=== PATIENT | female | born 1935 | race Asian ===

== ENCOUNTER 2021-06-02 18:30 | Inpatient (IN) | payer OTHER ==
[2021-06-02] MEDS ORDERED: METHYLPREDNISOLONE 125 MG INJ IV ONE (21:13)
[2021-06-02] MEDS ORDERED: ONDANSETRON 4 MG/2 ML VIAL IV PRN (21:13)
[2021-06-02] MEDS ORDERED: MAGNESIUM SULFATE 1 gm IVPB 1 GM/100 ML BAG IV ONE (21:16)
--- NOTE | 2021-06-02 21:24 | P.HP ---
Certification for Inpatient Patient admitted to: Inpatient With expected LOS: >2 Midnights Patient will require the following post-hospital care: None Practitioner: I am a practitioner with admitting privileges, knowledge of patient current condition, hospital course, and medical plan of care. Services: Services provided to patient in accordance with Admission requirements found in Title 42 Section 412.3 of the Code of Federal Regulations Patient History Date of Service: 06/02/21 Reason for admission: Asthma exacerbation History of Present Illness: 86-year-old female was transferred from stand-alone emergency department from [facility] for asthma exacerbation. Patient was treated in stand- alone emergency department with Decadron, nebulizer treatments but had refractory wheezing and dyspnea at rest, family lives close by and wished for patient to be transported here for further evaluation and management. Patient work-up at stand-alone ER unremarkable, chest x-ray with questionable pulmonary hypertension but no other acute findings labs overall unremarkable. Patient arrived to our facility still with expiratory wheezing, dyspnea, tachypnea and mild tachycardia. Patient seen and examined, have ordered additional medications including Solu-Medrol, magnesium, Xopenex breathing treatments given tachycardia. Will obtain ABG and admit for further evaluation. Allergies No Known Allergies Allergy (Verified 08/14/17 15:21) Home Medications: Albuterol Sulfate [Proair Hfa] 90 mcg IH QID 08/14/17 Losartan Potassium 100 mg PO DAILY 08/14/17 Oseltamivir Phosphate [Tamiflu] 75 mg PO BID 08/14/17 Arformoterol Tartrate [Brovana] 15 mcg IH BID #60 ml 08/16/17 Budesonide [Pulmicort] 1 mg IH BID #60 ampul.neb 08/16/17 Albuterol Neb [Proventil 0.083% Neb Soln] 2.5 mg IH QID PRN #300 amp 08/18/17 hydroCHLOROthiazide [Hydrodiuril*] 25 mg PO DAILY #30 tab 08/18/17 predniSONE [Deltasone*] 10 mg PO BID #20 tab 08/18/17 - Past Medical/Surgical History Diabetic: No -: ASTHMA -: HTN -: TUBAL LIGATION Psychosocial/ Personal History: Patient lives at home with her family - Family History Mother -: Diabetes - Social History Smoking Status: Never smoker Alcohol use: No CD- Drugs: No Caffeine use: No Place of Residence: Home Review of Systems 10-point ROS is otherwise unremarkable Respiratory: Cough, Dry, Shortness of Breath, SOB with Excertion, Wheezing, As per HPI Physical Examination - Physical Exam General: Alert, In no apparent distress, Oriented x3 HEENT: Atraumatic, PERRLA, Mucous membr. moist/pink, EOMI, Sclerae nonicteric Neck: Supple, 2+ carotid pulse no bruit, No LAD, Without JVD or thyroid abnormality Respiratory: Expiratory wheezes, Other (Mild to moderate dyspnea/tachypnea) Cardiovascular: Regular rate/rhythm (Sinus tachycardia), Normal S1 S2 Capillary refill: <2 Seconds Gastrointestinal: Normal bowel sounds, No tenderness Musculoskeletal: No contractures, No erythema, No tenderness Integumentary: No rashes Neurological: Normal speech, Normal strength at 5/5 x4 extr, Normal tone, Normal affect Assessment and Plan - Plan Assessment: Acute hypoxic respiratory failure secondary to asthma exacerbation Hypertension Plan: Acute hypoxic respiratory failure secondary to asthma exacerbation: Patient with mild to moderate dyspnea/tachypnea, expiratory wheezing at this time. Will treat with stat dose of Solu-Medrol, magnesium, Xopenex breathing treatment given mild tachycardia. Work-up at stand-alone ER unremarkable, Covid negative chest x-ray with pulmonary hypertension labs unremarkable. We will continue with scheduled nebs, ICS, scheduled steroids, pulmonology consult. ABG ordered and pending, patient may require BiPAP. Hypertension: Question if patient is taking medication or not, will need to verify home medications from pharmacy. Restart as appropriate, provide as needed blood pressure medication. DVT PPX: Lovenox Code status: Full Discharge Plan: Home Plan to discharge in: 48 Hours - Advance Directives Does patient have a Living Will: No Does patient have a Durable POA for Healthcare: No - Code Status/Comfort Care Code Status Assessed: Yes (Full code) Critical Care: No Time Spent Managing Pts Care (In Minutes): 55
[2021-06-02] MEDS: LEVALBUTEROL 1.25 MG/3 ML NEB NEB SCH (22:00)
[2021-06-02 22:06] LABS: Arterial Blood Carboxyhemoglob 0.8 % (0-1.5); Blood Gas Oxyhemoglobin 96.4 % (94-97)
[2021-06-02 22:27] VITALS: BMI 20.3
[2021-06-03] MEDS: LEVALBUTEROL 1.25 MG/3 ML NEB NEB SCH ×4 (02:00→20:00)
[2021-06-03] MEDS ORDERED: LORazepam 2 MG/ML VIAL IV ONE (02:21)
[2021-06-03] MEDS: BENZONATATE 100 MG CAP PO PRN ×3 (02:42→22:05)
[2021-06-03 05:46] LABS: Absolute Lymphocytes (CBC) 0.7 K/uL (0.7-4.9); Basophils % 0.7 % (0-1.3); Hematocrit 35.5 % (36.0-45.0); Lymphocytes % 15.9 % (15.3-44.8); MPV 8.2 fL (7.6-11.3); RBC Red Blood Cell Count 4.28 M/uL (3.86-4.86)
[2021-06-03 06:16] LABS: Albumin 3.7 g/dL (3.4-5.0); Bilirubin Total 0.3 mg/dL (0.2-1.0); Magnesium 2.3 mg/dL (1.8-2.4); Protein, Total 7.4 g/dL (6.4-8.2); Thyroid Stimulating Hormone 0.136 uIU/mL (0.360-3.740)
[2021-06-03] MEDS: ENOXAPARIN 40 MG/0.4 ML SQ SCH (08:10)
[2021-06-03] MEDS: METHYLPREDNISOLONE 40 MG INJ IV SCH ×3 (08:10→19:47)
[2021-06-03] MEDS ORDERED: DULERA 200/5 (MOMETASONE/FORMOTEROL) INHALER IH SCH (09:00)
[2021-06-03] MEDS: ARFORMOTEROL TARTRATE 15 MCG/2 ML VIAL.NEB NEB SCH ×2 (11:03→20:00)
[2021-06-03] MEDS ORDERED: HOME MED 1 EA UNK (Losartan Potassium [Losartan Potassium] 100 MG Tablet) PO SCH (11:05)
[2021-06-03] MEDS ORDERED: hydroCHLOROthiazide 25 MG TAB PO SCH (11:05)
--- NOTE | 2021-06-03 11:10 | P.CNS ---
Date of Consult: 06/03/21 Reason for Consult: Asthma exacerbation Chief Complaint: Asthma exacerbation History of Present Illness: Age 86 well controlled asthma worse ove the past 3 days while in [place], [facility] well controlled on meds/ SOB Allergies No Known Allergies Allergy (Verified 08/14/17 15:21) Home Medications: Albuterol Sulfate [Proair Hfa] 90 mcg IH QID 08/14/17 Losartan Potassium 100 mg PO DAILY 08/14/17 Oseltamivir Phosphate [Tamiflu] 75 mg PO BID 08/14/17 Arformoterol Tartrate [Brovana] 15 mcg IH BID #60 ml 08/16/17 Budesonide [Pulmicort] 1 mg IH BID #60 ampul.neb 08/16/17 Albuterol Neb [Proventil 0.083% Neb Soln] 2.5 mg IH QID PRN #300 amp 08/18/17 hydroCHLOROthiazide [Hydrodiuril*] 25 mg PO DAILY #30 tab 08/18/17 predniSONE [Deltasone*] 10 mg PO BID #20 tab 08/18/17 - Past Medical/Surgical History Diabetic: No -: ASTHMA -: HTN -: TUBAL LIGATION Psychosocial/ Personal History: Patient lives at home with her family - Family History Mother Medical History: Diabetes - Social History Alcohol use: No CD- Drugs: No Caffeine use: No Place of Residence: Home Review of Systems Respiratory: Cough, Shortness of Breath Physical Examination Temp Pulse Resp BP Pulse Ox 97.9 F 111 H 17 187/85 H 98 06/03/21 08:00 06/03/21 08:00 06/03/21 08:00 06/03/21 08:00 06/03/21 08:00 General: Alert, Moderate distress Respiratory: Expiratory wheezes Cardiovascular: No edema, Regular rate/rhythm Gastrointestinal: Normal bowel sounds, Soft and benign Laboratory Data (last 24 hrs) 06/03/21 05:31: Sodium 132 L, Potassium 4.0, BUN 15, Creatinine 0.65, Glucose 178 H, Magnesium 2.3, Total Bilirubin 0.3, AST 39 H, ALT 30, Alkaline Phosphatase 58 06/03/21 05:31: WBC 4.40, Hgb 12.1, Hct 35.5 L, Plt Count 259 - Problems (1) Asthma exacerbation Current Visit: No Status: Acute Plan: Age 86 AW astham exacerbation. CW bronchodilators. LAbs and meds reviewed. CT autumn at [place] NEg/ Pt is on amlodipine and nebs a t home Qualifiers: Asthma severity: moderate
[2021-06-03 11:18] LABS: Urine Appearance CLEAR (Clear); Urine Bilirubin NEGATIVE (Negative); Urine Blood NEGATIVE (Negative); Urine Color YELLOW (Yellow); Urine Glucose NEGATIVE (Negative); Urine Protein 1+ (Negative); Urine Urobilinogen 0.2 mg/dL (0.2-1.0)
--- NOTE | 2021-06-03 11:46 | RAD REPORT ---
EXAM DESCRIPTION: [facility] Single View06/03/2021 11:36 am CLINICAL HISTORY: Asthma COMPARISON: 2016 FINDINGS: The lungs are mildly hyperaerated. The lungs appear clear of acute infiltrate. The heart is normal size IMPRESSION: No acute abnormalities displayed
[2021-06-03 11:58] LABS: Urine Microscopic Reflex ORDER UMIC
[2021-06-03 12:17] LABS: Urine Bacteria NONE SEEN /HPF (<20); Urine Mucus 1+ /HPF (NONE SEEN); Urine RBC NONE SEEN /HPF (NONE SEEN)
[2021-06-03] MEDS: FAMOTIDINE 20 MG TAB PO SCH ×2 (21:00→21:02)
[2021-06-03] MEDS ORDERED: ARFORMOTEROL TARTRATE 15 MCG/2 ML VIAL.NEB IH SCH (21:00)
[2021-06-03] MEDS ORDERED: BUDESONIDE 1 MG/2 ML IH SCH (21:00)
[2021-06-03] MEDS ORDERED: LORAZEPAM 0.5 MG TABLET PO ONE (21:10)
[2021-06-04] MEDS: LEVALBUTEROL 1.25 MG/3 ML NEB NEB SCH ×5 (02:00→20:00)
[2021-06-04] MEDS: IPRATROPIUM BROM 0.5MG/2.5ML NEB SCH ×3 (02:00→08:00)
[2021-06-04 06:37] LABS: Absolute Lymphocytes (CBC) 1.2 K/uL (0.7-4.9); Basophils % 0.1 % (0-1.3); Hematocrit 36.1 % (36.0-45.0); Lymphocytes % 8.7 % (15.3-44.8); MPV 8.1 fL (7.6-11.3); RBC Red Blood Cell Count 4.31 M/uL (3.86-4.86)
[2021-06-04 06:56] LABS: Albumin 3.8 g/dL (3.4-5.0); Bilirubin Total 0.3 mg/dL (0.2-1.0); Magnesium 2.3 mg/dL (1.8-2.4); Potassium 4.7 mmol/L (3.5-5.1); Protein, Total 7.3 g/dL (6.4-8.2)
[2021-06-04] MEDS: ARFORMOTEROL TARTRATE 15 MCG/2 ML VIAL.NEB NEB SCH ×2 (08:00→20:00)
[2021-06-04] MEDS: ENOXAPARIN 40 MG/0.4 ML SQ SCH (08:30)
[2021-06-04] MEDS: FAMOTIDINE 20 MG TAB PO SCH ×2 (08:30→21:41)
[2021-06-04] MEDS: AMLODIPINE 5 MG TAB PO SCH (08:30)
[2021-06-04] MEDS: METHYLPREDNISOLONE 40 MG INJ IV SCH ×3 (08:31→21:41)
[2021-06-04] MEDS ORDERED: FUROSEMIDE 20 MG/ 2ML VIAL IV ONE (09:49)
[2021-06-04] MEDS: AZITHROMYCIN 500 MG/250 ML BAG IVPB SCH (10:42)
--- NOTE | 2021-06-04 10:46 | P.PN ---
Subjective Date of Service: 06/03/21 Patient still with some diffuse wheezing. Congestion is improving however. Continue with nebs, steroids, and antibiotic therapy. Anticipate discharge in the morning. Review of Systems 10-point ROS is otherwise unremarkable Physical Examination - Vital Signs Temperature: 97.8 F Blood Pressure: 147/75 Pulse: 75 Respirations: 30 Pulse Ox (%): 100 - Physical Exam General: Alert, In no apparent distress, Oriented x3 HEENT: Atraumatic, PERRLA, EOMI Neck: Supple, JVD not distended Respiratory: Diminished, Expiratory wheezes Cardiovascular: Regular rate/rhythm, Normal S1 S2 Gastrointestinal: Normal bowel sounds, No tenderness Musculoskeletal: No tenderness Integumentary: No rashes Neurological: Normal speech, Normal tone, Normal affect Lymphatics: No axilla or inguinal lymphadenopathy - Studies Laboratory Data (last 24 hrs) 06/04/21 06:10: Sodium 134 L, Potassium 4.7, BUN 17, Creatinine 0.71, Glucose 154 H, Magnesium 2.3, Total Bilirubin 0.3, AST 73 H, ALT 44, Alkaline Phosphatase 59 06/04/21 06:10: WBC 14.20 H D, Hgb 12.0, Hct 36.1, Plt Count 276 Medications List Reviewed: Yes Assessment & Plan - Problems (Diagnosis) (1) Asthma exacerbation Current Visit: No Status: Acute Qualifiers: Asthma severity: moderate (2) Diastolic heart failure Current Visit: No Status: Acute Qualifiers: Heart failure chronicity: chronic Qualified Code(s): I50.32 - Chronic diastolic (congestive) heart failure (3) SOB (shortness of breath) Onset Date: 08/18/17 Current Visit: No Status: Acute - Plan Plan: 1. Continue with albuterol and Atrovent nebs 2. Continue with IV steroids 3. Outpatient pulmonary function testing 4. Pulmonary follow-up 5. Room air O2 sats 6. Repeat chest x-ray in the morning 7. Peak flows as needed 8. GI and DVT prophylaxis Discharge Plan: Home Plan to discharge in: Greater than 2 days - Advance Directives Does patient have a Living Will: No Does patient have a Durable POA for Healthcare: No - Code Status/Comfort Care Code Status Assessed: Yes Code Status: Full Code Critical Care: No Time Spent Managing PTS Care (In Minutes): 35
--- NOTE | 2021-06-04 11:41 | P.PN ---
Subjective Date of Service: 06/04/21 Chief Complaint: Asthma exacerbation NCstill wheezing Review of Systems Respiratory: Cough, Shortness of Breath Physical Examination - Vital Signs Temperature: 97.8 F Blood Pressure: 147/75 Pulse: 75 Respirations: 30 Pulse Ox (%): 100 - Physical Exam General: Alert, Moderate distress Respiratory: Expiratory wheezes - Studies Laboratory Data (last 24 hrs) 06/04/21 06:10: Sodium 134 L, Potassium 4.7, BUN 17, Creatinine 0.71, Glucose 154 H, Magnesium 2.3, Total Bilirubin 0.3, AST 73 H, ALT 44, Alkaline Phosphatase 59 06/04/21 06:10: WBC 14.20 H D, Hgb 12.0, Hct 36.1, Plt Count 276 Medications List Reviewed: Yes Assessment & Plan - Problems (Diagnosis) (1) Asthma exacerbation Current Visit: No Status: Acute Plan: Nc still wheezing, DC atrovent nebs add Zithromax IV add one dose of lasix poss diastolic dysfunction ECHO Qualifiers: Asthma severity: moderate
[2021-06-04] MEDS: BENZONATATE 100 MG CAP PO PRN (21:41)
[2021-06-05] MEDS: LEVALBUTEROL 1.25 MG/3 ML NEB NEB SCH ×3 (01:50→14:00)
[2021-06-05 04:40] VITALS: O2SAT 98
[2021-06-05 05:49] LABS: Absolute Lymphocytes (CBC) 0.9 K/uL (0.7-4.9); Basophils % 0.5 % (0-1.3); Hematocrit 37.4 % (36.0-45.0); Lymphocytes % 6.1 % (15.3-44.8); MPV 8.3 fL (7.6-11.3); RBC Red Blood Cell Count 4.49 M/uL (3.86-4.86)
[2021-06-05 05:51] LABS: Bilirubin Total 0.2 mg/dL (0.2-1.0); Potassium 3.9 mmol/L (3.5-5.1)
[2021-06-05 05:52] LABS: Albumin 3.7 g/dL (3.4-5.0); Magnesium 2.2 mg/dL (1.8-2.4); Protein, Total 7.5 g/dL (6.4-8.2)
[2021-06-05 07:15] LABS: Blood Morphology Comment NOT SEEN (NOT SEEN); Platelet Estimate ADEQ
--- NOTE | 2021-06-05 07:55 | RAD REPORT ---
EXAM DESCRIPTION: CT - Chest Angio - 06/05/2021 7:38 am CLINICAL HISTORY: asthma-, shortness of breath COMPARISON: Chest Single View dated 06/03/2021 TECHNIQUE: Dynamically enhanced 3 mm thick images of the chest were obtained during administration o f approximately 150mL Isovue 370 IV contrast. Coronal and oblique MIP reconstruction images were gene rated and reviewed. Exam utilizes a protocol to evaluate the pulmonary arterial tree. All CT scans are performed using dose optimization technique as appropriate and may include automated exposure control or mA/KV adjustment according to patient size. FINDINGS: No pulmonary emboli are identified. The aorta as imaged shows no acute or suspicious finding. No pericardial thickening or effusion. A trace amount of airspace opacification is present in the lateral aspect of the right lower lobe pro bably not clinically significant. Lung blair are otherwise clear. No pleural effusion or pleural thi ckening. Bronchial wall calcifications are present. No endobronchial lesion. Slight thickening of the bronchial steele noted. No mediastinal or hilar suspicious masses. No chest wall masses or abnormal axillary lymphadenopathy. IMPRESSION: No pulmonary emboli identified. Minimal bronchial wall thickening could indicate reactive airway disease or viral infiltrate. Trace amount of airspace opacification in the lateral right lower lobe not likely clinically signific ant at this small size.
--- NOTE | 2021-06-05 07:59 | ECHO ---
HEIGHT: 5 ft 0 in WEIGHT: 104 lb 3.2 oz DATE OF STUDY: 06/04/[address]: Matthew Sharp MD 2-DIMENSIONAL: YES M.MODE: YES DOPPLER: YES COLOR FLOW: YES TDS: YES PORTABLE: NO DEFINITY: NO BUBBLE STUDY: NO DIAGNOSIS: SHORTNESS OF BREATH CARDIAC HISTORY: CATHERIZATION: SURGERY: PROSTHETIC VALVE: PACEMAKER: MEASUREMENTS (cm) DIASTOLIC (NORMALS) SYSTOLIC (NORMALS) IVSd 1.0 (0.6-1.2) LA Diam 2.6 (1.9-4.0) LVEF 66% LVIDd 2.9 (3.5-5.7) LVIDs 1.9 (2.0-3.5) %FS 35% LVPWd 1.1 (0.6-1.2) Ao Diam 2.7 (2.0-3.7) 2 DIMENSIONAL ASSESSMENT: RIGHT ATRIUM: NORMAL LEFT ATRIUM: NORMAL RIGHT VENTRICLE: NORMAL LEFT VENTRICLE: NORMAL TRICUSPID VALVE: NORMAL MITRAL VALVE: NORMAL PULMONIC VALVE: NORMAL AORTIC VALVE: NORMAL PERICARDIAL EFFUSION: NONE AORTIC ROOT: NORMAL LEFT VENTRICULAR WALL MOTION: PARADOXICAL SEPTUM. DOPPLER/COLOR FLOW: DECREASED LEFT VENTRICULAR COMPLIANCE. COMMENTS: PARADOXICAL SEPTUM. NORMAL LEFT VENTRICULAR EJECTION FRACTION. DECREASED LEFT VENTRICULAR COMPLIANCE CONSISTENT WITH DIASTOLIC DYSFUNTION. NO EFFUSION. TECHNOLOGIST: Smith PURI
[2021-06-05] MEDS: ARFORMOTEROL TARTRATE 15 MCG/2 ML VIAL.NEB NEB SCH (08:00)
[2021-06-05] MEDS: FAMOTIDINE 20 MG TAB PO SCH (08:47)
[2021-06-05] MEDS: BENZONATATE 100 MG CAP PO PRN (08:47)
[2021-06-05] MEDS: ENOXAPARIN 40 MG/0.4 ML SQ SCH (08:47)
[2021-06-05] MEDS: METHYLPREDNISOLONE 40 MG INJ IV SCH ×2 (08:47→14:03)
[2021-06-05] MEDS: AMLODIPINE 5 MG TAB PO SCH (08:47)
[2021-06-05] MEDS: AZITHROMYCIN 500 MG/250 ML BAG IVPB SCH (08:48)
[2021-06-05] MEDS ORDERED: POTASSIUM CL SA 10 MEQ TAB PO ONE (09:00)
[2021-06-05] MEDS ORDERED: FUROSEMIDE 20 MG TABLET PO SCH (11:55)
--- NOTE | 2021-06-05 11:56 | P.PN ---
Subjective Date of Service: 06/05/21 Chief Complaint: Diastolic heart failure with asthma exacerbation Patient is doing much better today much more comfortable after diuretics Review of Systems Respiratory: Shortness of Breath Physical Examination - Vital Signs Temperature: 96.9 F Blood Pressure: 124/72 Pulse: 96 Respirations: 30 Pulse Ox (%): 100 - Physical Exam General: Alert, Oriented x3, Cooperative Respiratory: Expiratory wheezes Cardiovascular: No edema, Regular rate/rhythm - Studies Laboratory Data (last 24 hrs) 06/05/21 05:00: Sodium 136, Potassium 3.9, BUN 22 H, Creatinine 0.89, Glucose 165 H, Magnesium 2.2, Total Bilirubin 0.2, AST 60 H, ALT 52, Alkaline Phosphatase 60 06/05/21 05:00: WBC 14.30 H, Hgb 12.4, Hct 37.4, Plt Count 282 Medications List Reviewed: Yes Assessment & Plan - Problems (Diagnosis) (1) Asthma exacerbation Current Visit: No Status: Acute Plan: Doing much better Qualifiers: Asthma severity: moderate (2) Diastolic heart failure Current Visit: No Status: Acute Plan: Patient admitted with acute on chronic diastolic failure due to fluid intake start patient on spironolactone Qualifiers: Heart failure chronicity: acute on chronic Qualified Code(s): I50.33 - Acute on chronic diastolic (congestive) heart failure
[2021-06-05 16:33] VITALS: BP 151/72; TEMP 97.7
--- NOTE | 2021-06-17 04:21 | P.PN ---
Date of Service: 06/04/21 Subjective Patient is still wheezing. However, she is feeling a little bit better per the family. Review of Systems 10-point ROS is otherwise unremarkable Physical Examination - Vital Signs Reviewed - Physical Exam General: Alert, In no apparent distress, Oriented x3 Respiratory: Diminished, Expiratory wheezes Cardiovascular: Regular rate/rhythm, Normal S1 S2 Gastrointestinal: Normal bowel sounds, No tenderness Neurological: Normal speech, Normal tone, Normal affect Assessment & Plan - Problems (Diagnosis) (1) Asthma exacerbation Current Visit: No Status: Acute Qualifiers: Asthma severity: moderate (2) Diastolic heart failure Current Visit: No Status: Acute Qualifiers: Heart failure chronicity: chronic Qualified Code(s): I50.32 - Chronic diastolic (congestive) heart failure (3) SOB (shortness of breath) Onset Date: 08/18/17 Current Visit: No Status: Acute - Plan Continue with plan of care as mentioned below: 1. Continue with albuterol and Atrovent nebs 2. Continue with IV steroids 3. Outpatient pulmonary function testing 4. Pulmonary follow-up 5. Room air O2 sats 6. Repeat chest x-ray in the morning 7. Peak flows as needed 8. GI and DVT prophylaxis
--- NOTE | 2021-06-17 04:23 | P.DS ---
Discharge Date: 06/05/21 Disposition: ROUTINE DISCHARGE Discharge Condition: GOOD Reason for Admission: Diastolic heart failure with asthma exacerbation - Problems (1) Asthma exacerbation Status: Acute Qualifiers: Asthma severity: moderate (2) Diastolic heart failure Status: Acute Qualifiers: Heart failure chronicity: acute on chronic Qualified Code(s): I50.33 - Acute on chronic diastolic (congestive) heart failure (3) SOB (shortness of breath) Onset Date: 08/18/17 Status: Acute Brief History of Present Illness: 86-year-old [place] female was transferred from stand-alone emergency department from [facility] for asthma exacerbation. Patient was treated in stand- alone emergency department with Decadron, nebulizer treatments but had refractory wheezing and dyspnea at rest, family lives close by and wished for patient to be transported here for further evaluation and management. Patient work-up at stand-alone ER unremarkable, chest x-ray with questionable pulmonary hypertension but no other acute findings labs overall unremarkable. Patient arrived to our facility still with expiratory wheezing, dyspnea, tachypnea and mild tachycardia. Patient seen and examined, have ordered additional medications including Solu-Medrol, magnesium, Xopenex breathing treatments given tachycardia. Will obtain ABG and admit for further evaluation. Hospital Course: Patient was given nebulizer treatments along with IV steroids. Patient was also given IVs antibiotics. Initial clinical symptoms are improving. Patient is stable for discharge with outpt follow-up. Vital Signs/Physical Exam: Temp Pulse Resp BP Pulse Ox 97.7 F 104 H 26 H 151/72 H 90 L 06/05/21 16:00 06/05/21 16:00 06/05/21 16:00 06/05/21 16:00 06/05/21 16:00 General: Alert, In no apparent distress, Oriented x3 Laboratory Data at Discharge: WBC 14.30 K/uL (4.3-10.9) H 06/05/21 05:00 Hgb 12.4 g/dL (12.0-15.0) 06/05/21 05:00 Hct 37.4 % (36.0-45.0) 06/05/21 05:00 Plt Count 282 K/uL (152-406) 06/05/21 05:00 Sodium 136 mmol/L (136-145) 06/05/21 05:00 Potassium 3.9 mmol/L (3.5-5.1) 06/05/21 05:00 BUN 22 mg/dL (7-18) H 06/05/21 05:00 Creatinine 0.89 mg/dL (0.55-1.3) 06/05/21 05:00 Glucose 165 mg/dL (74-106) H 06/05/21 05:00 Magnesium 2.2 mg/dL (1.8-2.4) 06/05/21 05:00 Total Bilirubin 0.2 mg/dL (0.2-1.0) 06/05/21 05:00 AST 60 U/L (15-37) H 06/05/21 05:00 ALT 52 U/L (12-78) 06/05/21 05:00 Alkaline Phosphatase 60 U/L (45-117) 06/05/21 05:00 Home Medications: Oseltamivir Phosphate [Tamiflu] 75 mg PO BID 08/14/17 Arformoterol Tartrate [Brovana] 15 mcg IH BID #60 ml 08/16/17 Amlodipine [Norvasc*] 5 mg PO DAILY #30 tab 06/04/21 Benzonatate [Tessalon Perle*] 100 mg PO TID PRN #30 cap 06/04/21 predniSONE [Deltasone] 20 mg PO BID #20 tab 06/04/21 Spironolactone 25 mg PO DAILY #30 tablet 06/05/21 Albuterol Neb [Proventil 0.083% Neb Soln] 2.5 mg IH Q6HP PRN #60 amp 06/06/21 New Medications: Amlodipine [Norvasc*] 5 mg PO DAILY #30 tab predniSONE [Deltasone] 20 mg PO BID #20 tab Albuterol Neb [Proventil 0.083% Neb Soln] 2.5 mg IH Q6HP PRN #60 amp PRN Reason: Shortness Of Breath Spironolactone 25 mg PO DAILY #30 tablet Benzonatate [Tessalon Perle*] 100 mg PO TID PRN #30 cap PRN Reason: Cough Physician Discharge Instructions: -OK TO DC IV AND DC HOME -FOLLOW-UP WITH PCP IN 1-2 WEEKS -FOLLOW-UP WITH Pulmonary IN 1-2 WEEKS -PLEASE MAKE SURE ALL DIAGNOSTIC STUDIES ARE AVAILABLE AND HAVE BEEN REVIEWED WITH PATIENT PRIOR TO DISCHARGE -RETURN TO THE ER IF symptoms worsen -CALL DR. PENA AT [phone] IF ANY QUESTIONS REGARDING HOSPITAL STAY -PLEASE CALL THE FLOOR AT [phone] IF ANY MEDICATION OR NURSING QUESTIONS Diet: AHA Activity: Fall precautions Followup: Matthew Sharp MD [ACTIVE - CAN ADMIT] - Time spent managing pt's care (in minutes): 35
== END 2021-06-05 17:25 | disposition home or self-care (01) | DRG 291 ==
LOC: 2ND 20:43
PROVIDERS: ADMIT Family Medicine; ATTEND Family Medicine
DX: I11.0 Hypertensive heart disease with heart failure (principal); J96.01 Acute respiratory failure with hypoxia; I50.33 Acute on chronic diastolic (congestive) heart failure; J45.41 Moderate persistent asthma with (acute) exacerbation
CPT/HCPCS: 36415; 71045; 71275; 80053; 81003; 81015; 82805; 83735; 83880; 84145; 84439; 84443; 85025; 85379; 93306; 94010; 94640; J0456; J1650; J1940; J2920; J2930; J3475; J7605; J7606; Q9967